=== PATIENT | female | born 1985 | race Caucasian/White ===

== ENCOUNTER → 2018-06-19 | Outpatient (CLI) | payer OTHER ==
--- NOTE | 2018-06-19 18:06 | Diagnostic Imaging Report ---
EXAMINATION: Pelvic ultrasound. INDICATION: Uterine bleeding. FINDINGS: There are no prior studies available for comparison. The uterus is nongravid and not enlarged measuring 7.2 x 4.9 x 3.9 cm. The endometrial lining is not thickened measuring 4 mm. There does seem to be a small 5 mm cyst adjacent to the endometrium in the lower uterine segment. This finding is of uncertain etiology although it has a generally benign appearance. There is no solid mass to suggest a fibroid. The left ovary is identified and is generally unremarkable. The right ovary is obscured by bowel gas. There is no solid pelvic mass or free fluid collection. IMPRESSION: 1. There is no acute pelvic abnormality although the right ovary is not well visualized. 2. There does appear to be a small benign-appearing cyst adjacent to the endometrium in the lower uterine segment. Dictated by: Dictated on workstation # [id number]
== END ==
LOC: RAD 11:58
PROVIDERS: ATTEND Obstetrics & Gynecology
DX: N93.8 Other specified abnormal uterine and vaginal bleeding (principal)
CPT/HCPCS: 76830; 76856